=== PATIENT | female | born 1990 ===

== ENCOUNTER 2018-06-11 15:28 | Inpatient (IN) | payer MEDICAID ==
--- NOTE | 2018-06-11 15:40 | ED PDOC ---
HPI: Psych/Substance Abuse Time Seen by Provider: 06/11/18 15:34 Chief Complaint (Nursing): Psychiatric Evaluation Chief Complaint (Provider): Psychiatric evaluation History Per: EMS History/Exam Limitations: clinical condition Additional Complaint(s): 27yo female with history of bipolar disorder, brought to ER by EMS for evaluation due to reported attempted suicide. Patient brought with suicide note. Patient report she took 10-15 klonopin (2mg) and 5-7 seroquel (200mg) as well as a bottle of tequila. Currently patient awake and answering questions appropriately. No complaints of chest pain, headache, abdominal pain, nausea, vomiting or diarrhea. No additional complaints. Per EMS, patient was going to commit suicide with a group of people; patient's friend called 911 Past Medical History Reviewed: Historical Data, Nursing Documentation, Vital Signs Vital Signs: Last Vital Signs Temp 98.1 F 06/11/18 15:33 Pulse 105 H 06/11/18 15:33 Resp 18 06/11/18 15:33 BP 126/74 06/11/18 15:33 Pulse Ox 99 06/11/18 15:33 Primary Care Provider: Naila Tirado - Medical History PMH: Bipolar Disorder - Surgical History Surgical History: No Surg Hx - Family History Family History: States: No Known Family Hx - Home Medications Home Medications: Ambulatory Orders Medication Instructions Recorded ALPRAZolam [Xanax] 1 mg PO Q8 06/11/18 Dextroamphetamine/Amphetamine 20 mg PO BID 06/11/18 [Adderall 20 mg Tablet] Diazepam [Valium] 10 mg PO Q12 PRN 06/11/18 [place] Carbon[facility] ER Tab [[place] 3 tab PO DAILY 06/11/18 Carbonate] Propranolol [Inderal] 10 mg PO Q12 06/11/18 - Allergies Allergies/Adverse Reactions: Allergies Allergy/AdvReac Type Severity Reaction Status Date / Time Unobtainable Allergy Verified 06/11/18 15:33 Review of Systems Cardiovascular: Negative for: Chest Pain Respiratory: Negative for: Shortness of Breath Gastrointestinal: Negative for: Nausea, Vomiting, Abdominal Pain, Diarrhea Psych: Positive for: Suicidal ideation Physical Exam - Reviewed Nursing Documentation Reviewed: Yes Vital Signs Reviewed: Yes - Physical Exam Head Exam: Positive for: ATRAUMATIC, NORMAL INSPECTION, NORMOCEPHALIC Skin: Positive for: Normal Color Eye Exam: Positive for: Normal appearance, EOMI, PERRL Neck: Positive for: Supple Cardiovascular/Chest: Positive for: Regular Rate, Rhythm Respiratory: Positive for: Normal Breath Sounds. Negative for: Respiratory Distress Gastrointestinal/Abdominal: Positive for: Normal Exam, Soft. Negative for: Tenderness Back: Positive for: Normal Inspection. Negative for: L CVA Tenderness, R CVA Tenderness Extremity: Positive for: Normal ROM. Negative for: Pedal Edema Neurological/Psych: Positive for: Awake, Alert, Mood/Affect (answering questions appropriately) - Laboratory Results Result Diagrams: 06/11/18 16:15 06/11/18 16:15 Interpretation Of Abn Labs: 16.8 wbc, etoh 70, benzo in urine - ECG ECG: Positive for: Interpreted By Me, Viewed By Me ECG Rhythm: Negative for: ST/T Changes Interpretation Of Abn EKG: qtc 473 O2 Sat by Pulse Oximetry: 99 (RA) Pulse Ox Interpretation: Normal - Progress ED Course And Treament: 2138: HR likely elevated from etoh abuse, dehydration, and overdose on meds. Pt. stable. Will give more hydration. HR is improving. EKG qtc stable and not worsening. 2199: Spoke with Dr. Pierre who will admit. Medical Decision Making Medical Decision Making: Impression: Brought in by EMS s/p suicide attempt Plan: -- Labs -- EKG -- Urinalysis -- IV Fluids 1:1 observation started due to concerns for patient safety. 1550 ROX Becker spoke with poison control, who recommend to electrolyte levels (especially potassium and magnesium), Aspririn, and Tylenol levels. Repeat EKG if electrolytes are abnormal. Also recommended to monitor for QTC prolongation due to the Seroquel ingestion and watch for [employer] depression due to Clonazepam and Seroquel. ScribeAttestation: Documented byPinky Solorio acting as a scribe for Roque Deal MD. Provider ScribeAttestation: All medical record entries made by the Scribe were at my direction and personally dictated by me. I have reviewed the chart and agree that the record accurately reflects my personal performance of the history, physical exam, medical decision making, and the department course for this patient. I have also personally directed, reviewed, and agree with the discharge instructions and disposition. Disposition - Clinical Impression Clinical Impression: Tachycardia, Dehydration, Depressed, Overdose - Patient ED Disposition Is Patient to be Admitted: Yes Counseled Patient/Family Regarding: Studies Performed, Diagnosis - Disposition Disposition Time: 22:06 Condition: FAIR - Pt Status Changed To: Hospital Disposition Of: Observation - POA Present On Arrival: None
[2018-06-11] MEDS ORDERED: Sodium Chloride 0.9% 1,000 ML IV STA ×3 (15:54→21:38)
[2018-06-11 16:35] LABS: BASO % 0.2 % (0.0-2.0); EOS % 0.1 % (0.0-4.0); HEMOGLOBIN 15.1 g/dL (12.0-16.0); LYMPH # 1.9 K/uL (1.0-4.3); LYMPH % 11.1 % (20.0-40.0); MEAN CELL VOLUME 87.3 fl (81.0-99.0); MEAN CORPUSCULAR HEMOGLOBIN 28.1 pg (27.0-31.0); MEAN CORPUSCULAR HGB CONC 32.1 g/dL (33.0-37.0); MEAN PLATELET VOLUME 7.8 fl (7.2-11.7); MONO % 5.9 % (0.0-10.0); NEUT # 13.9 K/uL (1.8-7.0); NEUT % 82.7 % (50.0-75.0); NRBC % 0.1 % (0.0-0.0); RBC 5.4 Mil/uL (3.80-5.20); RED CELL DISTRIBUTION WIDTH 14.2 % (11.5-14.5); WHITE BLOOD COUNT 16.8 K/uL (4.8-10.8)
[2018-06-11 16:41] LABS: ACETAMINOPHEN < 10.0 ug/ml (10.0-30.0); ALB/GLOB RATIO 1.4 (1.0-2.1); ALBUMIN 5.2 g/dL (3.5-5.0); ALT/SGPT 37 U/L (9-52); AST/SGOT 40 U/L (14-36); BLOOD UREA NITROGEN 10 mg/dl (7-17); CALCIUM 9.3 mg/dL (8.4-10.2); GFR NON-AFRICAN AMERICAN > 60; INR 1.2; PROTHROMBIN TIME 13.8 Seconds (9.8-13.1); SALICYLATE < 1.0 mg/dl
[2018-06-11 16:44] LABS: PARTIAL THROMBOPLASTIN TIME 36.2 Seconds (25.6-37.1)
[2018-06-11 18:29] LABS: URINE BACTERIA RARE (<OCC); URINE BILIRUBIN NEGATIVE (NEGATIVE); URINE BLOOD SMALL (NEGATIVE); URINE CLARITY CLEAR (Clear); URINE COLOR YELLOW (YELLOW); URINE GLUCOSE (UA) NEG (NEGATIVE); URINE LEUKOCYTE ESTERASE NEG Leu/uL (Negative); URINE PROTEIN NEGATIVE (NEGATIVE); URINE UROBILINOGEN 0.2-1.0 mg/dL (0.2-1.0)
[2018-06-11 18:48] LABS: BARBITURATES, UR NEGATIVE (NEGATIVE); BENZODIAZEPINES, UR POSITIVE (NEGATIVE); OPIATES, UR NEGATIVE (NEGATIVE); PHENCYCLIDINE, UR NEGATIVE (NEGATIVE)
--- NOTE | 2018-06-11 23:04 | CP.PCM.HP ---
<Marcin Choi - Last Filed: 06/11/18 23:13> History of Present Illness - History of Present Illness History of Present Illness: 27 yo F with pmhx of bipolar disorder presents to the ED for attempted suicide. She took Klonapin 2 mg #10-15 and Seroquel 200 mg #5-7 along with tequila. History gathered from ER documentation. Pt was sedated and was minimally interactive. In the ER, she was also noted to by tachycardic 110s Present on Admission - Present on Admission Any Indicators Present on Admission: No Review of Systems - Review of Systems Systems not reviewed;Unavailable: Altered Mental Status, Intoxicated Past Patient History - Past Social History Smoking Status: Light Smoker < 10 Cigarettes Daily - CARDIAC Hx Cardiac Disorders: No Hx Hypertension: No - PULMONARY Hx Tuberculosis: No - NEUROLOGICAL HX Cerebrovascular Accident: No Hx Seizures: No - HEMATOLOGICAL/ONCOLOGICAL Hx Cancer: No Hx Human Immunodeficiency Virus (HIV): No - GENITOURINARY/GYNECOLOGICAL Hx Sexually Transmitted Disorders: No - PSYCHIATRIC Hx Bipolar Disorder: Yes - SURGICAL HISTORY Hx Surgeries: Yes Other/Comment: oral surgery - ANESTHESIA Hx Anesthesia: Yes Meds Allergies/Adverse Reactions: Allergies Allergy/AdvReac Type Severity Reaction Status Date / Time Unobtainable Allergy Verified 06/11/18 15:33 Physical Exam - Constitutional Appears: Confused, Other (sedated) - Eye Exam Eye Exam: EOMI. absent: Nystagmus - ENT Exam ENT Exam: Mucous Membranes Moist - Respiratory Exam Respiratory Exam: Clear to Auscultation Bilateral. absent: Wheezes - Cardiovascular Exam Cardiovascular Exam: Tachycardia, +S1, +S2 - GI/Abdominal Exam GI & Abdominal Exam: Normal Bowel Sounds, Soft. absent: Tenderness - Neurological Exam Neurological exam: Altered - Psychiatric Exam Psychiatric exam: Suicidal Ideation Results - Vital Signs Recent Vital Signs: Last Vital Signs Temp 98.1 F 06/11/18 15:33 Pulse 107 H 06/11/18 22:07 Resp 18 06/11/18 22:07 BP 108/69 06/11/18 22:07 Pulse Ox 100 06/11/18 22:07 - Labs Result Diagrams: 06/11/18 16:15 06/11/18 16:15 Labs: Laboratory Results - last 24 hr 06/11/18 06/11/18 06/11/18 15:56 16:15 16:15 WBC RBC Hgb Hct MCV MCH MCHC RDW Plt Count MPV Neut % (Auto) Lymph % (Auto) [place] % (Auto) Eos % (Auto) Baso % (Auto) Neut # (Auto) Lymph # (Auto) [place] # (Auto) Eos # (Auto) Baso # (Auto) PT INR APTT Sodium 145 Potassium 4.0 Chloride 107 Carbon Dioxide 17 L Anion Gap 25 H BUN 10 Creatinine 0.5 L Est GFR ( Amer) > 60 Est GFR (Non-Af Amer) > 60 POC Glucose (mg/dL) 90 Random Glucose 96 Calcium 9.3 Magnesium 2.2 Total Bilirubin 0.3 AST 40 H ALT 37 Alkaline Phosphatase 70 Troponin I 0.0480 Total Protein 8.9 H Albumin 5.2 H Globulin 3.8 Albumin/Globulin Ratio 1.4 Urine Color Urine Clarity Urine pH Ur Specific [place] Urine Protein Urine Glucose (UA) Urine Ketones Urine Blood Urine Nitrate Urine Bilirubin Urine Urobilinogen Ur Leukocyte Esterase Urine RBC (Auto) Urine Microscopic WBC Urine Bacteria Salicylates < 1.0 Urine Opiates Screen Urine Methadone Screen Acetaminophen < 10.0 L Ur Barbiturates Screen Ur Phencyclidine Scrn Ur Amphetamines Screen U Benzodiazepines Scrn U Oth Cocaine Metabols U Cannabinoids Screen Alcohol, Quantitative 70 H 06/11/18 06/11/18 06/11/18 16:15 16:15 17:50 WBC 16.8 H RBC 5.40 H Hgb 15.1 Hct 47.1 H MCV 87.3 MCH 28.1 MCHC 32.1 L RDW 14.2 Plt Count 355 MPV 7.8 Neut % (Auto) 82.7 H Lymph % (Auto) 11.1 L [place] % (Auto) 5.9 Eos % (Auto) 0.1 Baso % (Auto) 0.2 Neut # (Auto) 13.9 H Lymph # (Auto) 1.9 [place] # (Auto) 1.0 H Eos # (Auto) 0.0 Baso # (Auto) 0.0 PT 13.8 H INR 1.2 APTT 36.2 Sodium Potassium Chloride Carbon Dioxide Anion Gap BUN Creatinine Est GFR ( Amer) Est GFR (Non-Af Amer) POC Glucose (mg/dL) Random Glucose Calcium Magnesium Total Bilirubin AST ALT Alkaline Phosphatase Troponin I Total Protein Albumin Globulin Albumin/Globulin Ratio Urine Color Urine Clarity Urine pH Ur Specific [place] Urine Protein Urine Glucose (UA) Urine Ketones Urine Blood Urine Nitrate Urine Bilirubin Urine Urobilinogen Ur Leukocyte Esterase Urine RBC (Auto) Urine Microscopic WBC Urine Bacteria Salicylates Urine Opiates Screen Negative Urine Methadone Screen Negative Acetaminophen Ur Barbiturates Screen Negative Ur Phencyclidine Scrn Negative Ur Amphetamines Screen Negative U Benzodiazepines Scrn Positive U Oth Cocaine Metabols Negative U Cannabinoids Screen Negative Alcohol, Quantitative 06/11/18 17:50 WBC RBC Hgb Hct MCV MCH MCHC RDW Plt Count MPV Neut % (Auto) Lymph % (Auto) [place] % (Auto) Eos % (Auto) Baso % (Auto) Neut # (Auto) Lymph # (Auto) [place] # (Auto) Eos # (Auto) Baso # (Auto) PT INR APTT Sodium Potassium Chloride Carbon Dioxide Anion Gap BUN Creatinine Est GFR ( Amer) Est GFR (Non-Af Amer) POC Glucose (mg/dL) Random Glucose Calcium Magnesium Total Bilirubin AST ALT Alkaline Phosphatase Troponin I Total Protein Albumin Globulin Albumin/Globulin Ratio Urine Color Yellow Urine Clarity Clear Urine pH 5.0 Ur Specific [place] 1.013 Urine Protein Negative Urine Glucose (UA) Neg Urine Ketones Trace Urine Blood Small Urine Nitrate Negative Urine Bilirubin Negative Urine Urobilinogen 0.2-1.0 Ur Leukocyte Esterase Neg Urine RBC (Auto) 3 Urine Microscopic WBC 1 Urine Bacteria Rare Salicylates Urine Opiates Screen Urine Methadone Screen Acetaminophen Ur Barbiturates Screen Ur Phencyclidine Scrn Ur Amphetamines Screen U Benzodiazepines Scrn U Oth Cocaine Metabols U Cannabinoids Screen Alcohol, Quantitative Assessment & Plan - Assessment and Plan (Free Text) Assessment: 27 yo F with pmhx of bipolar disorder presents to the ED for attempted suicide. Plan: Tachycardia: Admit to Tele potline monitor pt reports last taking propranolol 2 months ago. start metoprolol IV 5 mg q6 hrs monitor vital signs Substance overdose: Attempted suicide Klonopin and Seroquel Supportive measures Monitor vitals, mental status, AM labs c/w 1:1 observation Neurochecks pt to be admitted to psych for attempted suicide DVT prophylaxis SCDs Case and plan d/w Dr. Ignacio Choi MD PGY-2 <Rachana Pierre - Last Filed: 06/12/18 06:15> Results - Vital Signs Recent Vital Signs: Last Vital Signs Temp 98.1 F 06/12/18 05:03 Pulse 83 06/12/18 05:03 Resp 20 06/12/18 05:03 BP 115/71 06/12/18 05:03 Pulse Ox 99 06/12/18 05:03 - Labs Result Diagrams: 06/12/18 04:40 06/12/18 04:40 Labs: Laboratory Results - last 24 hr 06/11/18 06/11/18 06/11/18 15:56 16:15 16:15 WBC RBC Hgb Hct MCV MCH MCHC RDW Plt Count MPV Neut % (Auto) Lymph % (Auto) [place] % (Auto) Eos % (Auto) Baso % (Auto) Neut # (Auto) Lymph # (Auto) [place] # (Auto) Eos # (Auto) Baso # (Auto) PT INR APTT Sodium 145 Potassium 4.0 Chloride 107 Carbon Dioxide 17 L Anion Gap 25 H BUN 10 Creatinine 0.5 L Est GFR ( Amer) > 60 Est GFR (Non-Af Amer) > 60 POC Glucose (mg/dL) 90 Random Glucose 96 Calcium 9.3 Phosphorus Magnesium 2.2 Total Bilirubin 0.3 AST 40 H ALT 37 Alkaline Phosphatase 70 Troponin I 0.0480 Total Protein 8.9 H Albumin 5.2 H Globulin 3.8 Albumin/Globulin Ratio 1.4 Urine Color Urine Clarity Urine pH Ur Specific [place] Urine Protein Urine Glucose (UA) Urine Ketones Urine Blood Urine Nitrate Urine Bilirubin Urine Urobilinogen Ur Leukocyte Esterase Urine RBC (Auto) Urine Microscopic WBC Urine Bacteria Salicylates < 1.0 Urine Opiates Screen Urine Methadone Screen Acetaminophen < 10.0 L Ur Barbiturates Screen Ur Phencyclidine Scrn Ur Amphetamines Screen U Benzodiazepines Scrn U Oth Cocaine Metabols U Cannabinoids Screen Alcohol, Quantitative 70 H 06/11/18 06/11/18 06/11/18 16:15 16:15 17:50 WBC 16.8 H RBC 5.40 H Hgb 15.1 Hct 47.1 H MCV 87.3 MCH 28.1 MCHC 32.1 L RDW 14.2 Plt Count 355 MPV 7.8 Neut % (Auto) 82.7 H Lymph % (Auto) 11.1 L [place] % (Auto) 5.9 Eos % (Auto) 0.1 Baso % (Auto) 0.2 Neut # (Auto) 13.9 H Lymph # (Auto) 1.9 [place] # (Auto) 1.0 H Eos # (Auto) 0.0 Baso # (Auto) 0.0 PT 13.8 H INR 1.2 APTT 36.2 Sodium Potassium Chloride Carbon Dioxide Anion Gap BUN Creatinine Est GFR ( Amer) Est GFR (Non-Af Amer) POC Glucose (mg/dL) Random Glucose Calcium Phosphorus Magnesium Total Bilirubin AST ALT Alkaline Phosphatase Troponin I Total Protein Albumin Globulin Albumin/Globulin Ratio Urine Color Urine Clarity Urine pH Ur Specific [place] Urine Protein Urine Glucose (UA) Urine Ketones Urine Blood Urine Nitrate Urine Bilirubin Urine Urobilinogen Ur Leukocyte Esterase Urine RBC (Auto) Urine Microscopic WBC Urine Bacteria Salicylates Urine Opiates Screen Negative Urine Methadone Screen Negative Acetaminophen Ur Barbiturates Screen Negative Ur Phencyclidine Scrn Negative Ur Amphetamines Screen Negative U Benzodiazepines Scrn Positive U Oth Cocaine Metabols Negative U Cannabinoids Screen Negative Alcohol, Quantitative 06/11/18 06/12/18 06/12/18 17:50 04:40 04:40 WBC 12.5 H RBC 4.30 Hgb 12.3 D Hct 37.6 MCV 87.3 MCH 28.5 MCHC 32.6 L RDW 14.3 Plt Count 279 MPV Neut % (Auto) Lymph % (Auto) [place] % (Auto) Eos % (Auto) Baso % (Auto) Neut # (Auto) Lymph # (Auto) [place] # (Auto) Eos # (Auto) Baso # (Auto) PT INR APTT Sodium 143 Potassium 3.5 L Chloride 113 H Carbon Dioxide 23 Anion Gap 11 BUN 10 Creatinine 0.5 L Est GFR ( Amer) > 60 Est GFR (Non-Af Amer) > 60 POC Glucose (mg/dL) Random Glucose 90 Calcium 8.1 L Phosphorus 2.6 Magnesium 1.9 Total Bilirubin 0.6 AST 31 ALT 30 Alkaline Phosphatase 49 Troponin I Total Protein 6.4 Albumin 3.6 Globulin 2.8 Albumin/Globulin Ratio 1.3 Urine Color Yellow Urine Clarity Clear Urine pH 5.0 Ur Specific [place] 1.013 Urine Protein Negative Urine Glucose (UA) Neg Urine Ketones Trace Urine Blood Small Urine Nitrate Negative Urine Bilirubin Negative Urine Urobilinogen 0.2-1.0 Ur Leukocyte Esterase Neg Urine RBC (Auto) 3 Urine Microscopic WBC 1 Urine Bacteria Rare Salicylates Urine Opiates Screen Urine Methadone Screen Acetaminophen Ur Barbiturates Screen Ur Phencyclidine Scrn Ur Amphetamines Screen U Benzodiazepines Scrn U Oth Cocaine Metabols U Cannabinoids Screen Alcohol, Quantitative Attending/Attestation - Attestation I have personally seen and examined this patient.: Yes I have fully participated in the care of the patient.: Yes I have reviewed all pertinent clinical information: Yes Notes (Text): 06/12/18 06:13 agree with findings and plan as below. 27 year old female SI overdose with seroquel and clonazepam, patient sedated, arousable, however not answering questions at this time. Patient is accepted for admission to psych, however tachycardic at 120s. Will obs on tele, initiate lopressor IV q6 hours for HR control, and change to PO when more awake and able to take PO meds. Likely discharge to psych in AM.
[2018-06-11] MEDS: Metoprolol 1 mg/ml Inj IVP SCH (23:21)
[2018-06-12] MEDS: Metoprolol 1 mg/ml Inj IVP SCH ×4 (05:00→22:20)
[2018-06-12 05:32] LABS: HEMOGLOBIN 12.3 g/dL (12.0-16.0); MEAN CELL VOLUME 87.3 fl (81.0-99.0); MEAN CORPUSCULAR HEMOGLOBIN 28.5 pg (27.0-31.0); MEAN CORPUSCULAR HGB CONC 32.6 g/dL (33.0-37.0); RBC 4.3 Mil/uL (3.80-5.20); RED CELL DISTRIBUTION WIDTH 14.3 % (11.5-14.5); WHITE BLOOD COUNT 12.5 K/uL (4.8-10.8)
[2018-06-12 05:47] LABS: ALB/GLOB RATIO 1.3 (1.0-2.1); ALBUMIN 3.6 g/dL (3.5-5.0); ALT/SGPT 30 U/L (9-52); AST/SGOT 31 U/L (14-36); BLOOD UREA NITROGEN 10 mg/dl (7-17); CALCIUM 8.1 mg/dL (8.4-10.2); GFR NON-AFRICAN AMERICAN > 60
[2018-06-12] MEDS ORDERED: Potassium Chloride 20 mEq ER Tab PO ONE (07:47)
--- NOTE | 2018-06-12 08:10 | CP.PCM.CON ---
History of Present Illness - History of Present Illness History of Present Illness: Psychiatry consult note CC: Suicide attempt HPI: As per chart, patient is a 27 yo female w/ h/o bipolar brought to ER by EMS for evaluation due to reported attempted suicide. Patient brought with suicide note. Patient report she took 10-15 klonopin (2mg) and 5-7 seroquel (200mg) as well as a bottle of tequila. Patient is currently lethargic, falling asleep during evaluation. She knows she is in the hospital, but can not stay awake long enough to engage in a full psychiatric interview. Impression: 27 yo female w/ h/o bipolar disorder, admitted s/p suicide attempt w/ suicide note, currently unable to participate in psychiatric evaluation due to lethargy. -Recommend to continue 1:1 for safety -Recommend inpatient psychiatric admission when patient is medically stable; if she is not agreeable, patient needs to be screened for involuntary psychiatric admission Past Patient History - Past Medical History & Family History Past Medical History?: Yes - Past Social History Smoking Status: unknown - CARDIAC Hx Cardiac Disorders: No Hx Hypertension: No - PULMONARY Hx Respiratory Disorders: No Hx Tuberculosis: No - NEUROLOGICAL Hx Neurological Disorder: No HX Cerebrovascular Accident: No Hx Seizures: No - HEENT Hx HEENT Problems: No - RENAL Hx Chronic Kidney Disease: No - ENDOCRINE/METABOLIC Hx Endocrine Disorders: No - HEMATOLOGICAL/ONCOLOGICAL Hx Blood Disorders: No Hx Cancer: No Hx Human Immunodeficiency Virus (HIV): No - INTEGUMENTARY Hx Dermatological Problems: No - MUSCULOSKELETAL/RHEUMATOLOGICAL Hx Musculoskeletal Disorders: No Hx Falls: No - GASTROINTESTINAL Hx Gastrointestinal Disorders: No - GENITOURINARY/GYNECOLOGICAL Hx Genitourinary Disorders: No Hx Sexually Transmitted Disorders: No - PSYCHIATRIC Hx Psychophysiologic Disorder: Yes Hx Bipolar Disorder: Yes Hx Substance Use: (unobtainable) - SURGICAL HISTORY Hx Surgeries: Yes Other/Comment: oral surgery - ANESTHESIA Hx Anesthesia: Yes Hx Anesthesia Reactions: No Hx Malignant Hyperthermia: No Has any member of the family had a problem w/ anesthesia?: No Meds Allergies/Adverse Reactions: Allergies Allergy/AdvReac Type Severity Reaction Status Date / Time Unobtainable Allergy Verified 06/11/18 15:33 - Medications Medications: Current Medications Metoprolol Tartrate (Lopressor) 5 mg IVP Q6 TYRA Last Admin: 06/12/18 05:00 Dose: 5 mg Results - Vital Signs Recent Vital Signs: Last Vital Signs Temp 97.5 F L 06/12/18 07:49 Pulse 82 06/12/18 07:49 Resp 18 06/12/18 07:49 BP 102/69 06/12/18 07:49 Pulse Ox 99 06/12/18 07:49 - Labs Result Diagrams: 06/12/18 04:40 06/12/18 04:40 Labs: Laboratory Results - last 24 hr 06/11/18 06/11/18 06/11/18 15:56 16:15 16:15 WBC RBC Hgb Hct MCV MCH MCHC RDW Plt Count MPV Neut % (Auto) Lymph % (Auto) Saline % (Auto) Eos % (Auto) Baso % (Auto) Neut # (Auto) Lymph # (Auto) Saline # (Auto) Eos # (Auto) Baso # (Auto) PT INR APTT Sodium 145 Potassium 4.0 Chloride 107 Carbon Dioxide 17 L Anion Gap 25 H BUN 10 Creatinine 0.5 L Est GFR ( Amer) > 60 Est GFR (Non-Af Amer) > 60 POC Glucose (mg/dL) 90 Random Glucose 96 Calcium 9.3 Phosphorus Magnesium 2.2 Total Bilirubin 0.3 AST 40 H ALT 37 Alkaline Phosphatase 70 Troponin I 0.0480 Total Protein 8.9 H Albumin 5.2 H Globulin 3.8 Albumin/Globulin Ratio 1.4 Urine Color Urine Clarity Urine pH Ur Specific [place] Urine Protein Urine Glucose (UA) Urine Ketones Urine Blood Urine Nitrate Urine Bilirubin Urine Urobilinogen Ur Leukocyte Esterase Urine RBC (Auto) Urine Microscopic WBC Urine Bacteria Salicylates < 1.0 Urine Opiates Screen Urine Methadone Screen Acetaminophen < 10.0 L Ur Barbiturates Screen Ur Phencyclidine Scrn Ur Amphetamines Screen U Benzodiazepines Scrn U Oth Cocaine Metabols U Cannabinoids Screen Alcohol, Quantitative 70 H 06/11/18 06/11/18 06/11/18 16:15 16:15 17:50 WBC 16.8 H RBC 5.40 H Hgb 15.1 Hct 47.1 H MCV 87.3 MCH 28.1 MCHC 32.1 L RDW 14.2 Plt Count 355 MPV 7.8 Neut % (Auto) 82.7 H Lymph % (Auto) 11.1 L Saline % (Auto) 5.9 Eos % (Auto) 0.1 Baso % (Auto) 0.2 Neut # (Auto) 13.9 H Lymph # (Auto) 1.9 Saline # (Auto) 1.0 H Eos # (Auto) 0.0 Baso # (Auto) 0.0 PT 13.8 H INR 1.2 APTT 36.2 Sodium Potassium Chloride Carbon Dioxide Anion Gap BUN Creatinine Est GFR ( Amer) Est GFR (Non-Af Amer) POC Glucose (mg/dL) Random Glucose Calcium Phosphorus Magnesium Total Bilirubin AST ALT Alkaline Phosphatase Troponin I Total Protein Albumin Globulin Albumin/Globulin Ratio Urine Color Urine Clarity Urine pH Ur Specific [place] Urine Protein Urine Glucose (UA) Urine Ketones Urine Blood Urine Nitrate Urine Bilirubin Urine Urobilinogen Ur Leukocyte Esterase Urine RBC (Auto) Urine Microscopic WBC Urine Bacteria Salicylates Urine Opiates Screen Negative Urine Methadone Screen Negative Acetaminophen Ur Barbiturates Screen Negative Ur Phencyclidine Scrn Negative Ur Amphetamines Screen Negative U Benzodiazepines Scrn Positive U Oth Cocaine Metabols Negative U Cannabinoids Screen Negative Alcohol, Quantitative 06/11/18 06/12/18 06/12/18 17:50 04:40 04:40 WBC 12.5 H RBC 4.30 Hgb 12.3 D Hct 37.6 MCV 87.3 MCH 28.5 MCHC 32.6 L RDW 14.3 Plt Count 279 MPV Neut % (Auto) Lymph % (Auto) Saline % (Auto) Eos % (Auto) Baso % (Auto) Neut # (Auto) Lymph # (Auto) Saline # (Auto) Eos # (Auto) Baso # (Auto) PT INR APTT Sodium 143 Potassium 3.5 L Chloride 113 H Carbon Dioxide 23 Anion Gap 11 BUN 10 Creatinine 0.5 L Est GFR ( Amer) > 60 Est GFR (Non-Af Amer) > 60 POC Glucose (mg/dL) Random Glucose 90 Calcium 8.1 L Phosphorus 2.6 Magnesium 1.9 Total Bilirubin 0.6 AST 31 ALT 30 Alkaline Phosphatase 49 Troponin I Total Protein 6.4 Albumin 3.6 Globulin 2.8 Albumin/Globulin Ratio 1.3 Urine Color Yellow Urine Clarity Clear Urine pH 5.0 Ur Specific [place] 1.013 Urine Protein Negative Urine Glucose (UA) Neg Urine Ketones Trace Urine Blood Small Urine Nitrate Negative Urine Bilirubin Negative Urine Urobilinogen 0.2-1.0 Ur Leukocyte Esterase Neg Urine RBC (Auto) 3 Urine Microscopic WBC 1 Urine Bacteria Rare Salicylates Urine Opiates Screen Urine Methadone Screen Acetaminophen Ur Barbiturates Screen Ur Phencyclidine Scrn Ur Amphetamines Screen U Benzodiazepines Scrn U Oth Cocaine Metabols U Cannabinoids Screen Alcohol, Quantitative
--- NOTE | 2018-06-12 09:24 | CARD ---
APPROVED REPORT Date of service: 06/11/2018 EKG Measurement Heart [id number] <Conclusion> Sinus tachycardia Nonspecific T wave abnormality Abnormal ECG
--- NOTE | 2018-06-12 09:32 | CARD ---
APPROVED REPORT Date of service: 06/11/2018 EKG Measurement Heart [id number] <Conclusion> Sinus tachycardia Otherwise normal ECG
--- NOTE | 2018-06-12 10:06 | CP.PCM.DIS ---
Provider - Provider Date of Admission: 06/11/18 23:10 Attending physician: Rachana Pierre DO Consults: 06/12/18 05:15 Social Work Referral Routine Comment: with bipolar Physician Instructions: Reason For Exam: OD 06/12/18 08:00 Psychiatry Consult Routine Comment: Consulting Provider: Karrie Sinha Consulting Physician: Karrie Sinha Reason for Consult: Attempted suicide Hospital Course - Lab Results Lab Results: Most Recent Lab Values WBC 12.5 K/uL (4.8-10.8) H 06/12/18 04:40 RBC 4.30 Mil/uL (3.80-5.20) 06/12/18 04:40 Hgb 12.3 g/dL (12.0-16.0) D 06/12/18 04:40 Hct 37.6 % (34.0-47.0) 06/12/18 04:40 MCV 87.3 fl (81.0-99.0) 06/12/18 04:40 MCH 28.5 pg (27.0-31.0) 06/12/18 04:40 MCHC 32.6 g/dL (33.0-37.0) L 06/12/18 04:40 RDW 14.3 % (11.5-14.5) 06/12/18 04:40 Plt Count 279 K/uL (130-400) 06/12/18 04:40 MPV 7.8 fl (7.2-11.7) 06/11/18 16:15 Neut % (Auto) 82.7 % (50.0-75.0) H 06/11/18 16:15 Lymph % (Auto) 11.1 % (20.0-40.0) L 06/11/18 16:15 [place] % (Auto) 5.9 % (0.0-10.0) 06/11/18 16:15 Eos % (Auto) 0.1 % (0.0-4.0) 06/11/18 16:15 Baso % (Auto) 0.2 % (0.0-2.0) 06/11/18 16:15 Neut # (Auto) 13.9 K/uL (1.8-7.0) H 06/11/18 16:15 Lymph # (Auto) 1.9 K/uL (1.0-4.3) 06/11/18 16:15 [place] # (Auto) 1.0 K/uL (0.0-0.8) H 06/11/18 16:15 Eos # (Auto) 0.0 K/uL (0.0-0.7) 06/11/18 16:15 Baso # (Auto) 0.0 K/uL (0.0-0.2) 06/11/18 16:15 PT 13.8 Seconds (9.8-13.1) H 06/11/18 16:15 INR 1.2 06/11/18 16:15 APTT 36.2 Seconds (25.6-37.1) 06/11/18 16:15 Sodium 143 mmol/l (132-148) 06/12/18 04:40 Potassium 3.5 MMOL/L (3.6-5.0) L 06/12/18 04:40 Chloride 113 mmol/L (98-107) H 06/12/18 04:40 Carbon Dioxide 23 mmol/L (22-30) 06/12/18 04:40 Anion Gap 11 (10-20) 06/12/18 04:40 BUN 10 mg/dl (7-17) 06/12/18 04:40 Creatinine 0.5 mg/dl (0.7-1.2) L 06/12/18 04:40 Est GFR ( Amer) > 60 06/12/18 04:40 Est GFR (Non-Af Amer) > 60 06/12/18 04:40 POC Glucose (mg/dL) 90 mg/dL (65-110) 06/11/18 15:56 Random Glucose 90 mg/dL (65-105) 06/12/18 04:40 Calcium 8.1 mg/dL (8.4-10.2) L 06/12/18 04:40 Phosphorus 2.6 mg/dl (2.5-4.5) 06/12/18 04:40 Magnesium 1.9 MG/DL (1.6-2.3) 06/12/18 04:40 Total Bilirubin 0.6 mg/dl (0.2-1.3) 06/12/18 04:40 AST 31 U/L (14-36) 06/12/18 04:40 ALT 30 U/L (9-52) 06/12/18 04:40 Alkaline Phosphatase 49 U/L (38-126) 06/12/18 04:40 Troponin I 0.0480 ng/mL (0.00-0.120) 06/11/18 16:15 Total Protein 6.4 G/DL (6.3-8.2) 06/12/18 04:40 Albumin 3.6 g/dL (3.5-5.0) 06/12/18 04:40 Globulin 2.8 gm/dL (2.2-3.9) 06/12/18 04:40 Albumin/Globulin Ratio 1.3 (1.0-2.1) 06/12/18 04:40 Urine Color Yellow (YELLOW) 06/11/18 17:50 Urine Clarity Clear (Clear) 06/11/18 17:50 Urine pH 5.0 (5.0-8.0) 06/11/18 17:50 Ur Specific [place] 1.013 (1.003-1.030) 06/11/18 17:50 Urine Protein Negative mg/dL (NEGATIVE) 06/11/18 17:50 Urine Glucose (UA) Neg mg/dL (NEGATIVE) 06/11/18 17:50 Urine Ketones Trace mg/dL (NEGATIVE) 06/11/18 17:50 Urine Blood Small (NEGATIVE) 06/11/18 17:50 Urine Nitrate Negative (NEGATIVE) 06/11/18 17:50 Urine Bilirubin Negative (NEGATIVE) 06/11/18 17:50 Urine Urobilinogen 0.2-1.0 mg/dL (0.2-1.0) 06/11/18 17:50 Ur Leukocyte Esterase Neg Latoya/uL (Negative) 06/11/18 17:50 Urine RBC (Auto) 3 /hpf (0-3) 06/11/18 17:50 Urine Microscopic WBC 1 /hpf (0-5) 06/11/18 17:50 Urine Bacteria Rare (<OCC) 06/11/18 17:50 Salicylates < 1.0 mg/dl 06/11/18 16:15 Urine Opiates Screen Negative (NEGATIVE) 06/11/18 17:50 Urine Methadone Screen Negative (NEGATIVE) 06/11/18 17:50 Acetaminophen < 10.0 ug/ml (10.0-30.0) L 06/11/18 16:15 Ur Barbiturates Screen Negative (NEGATIVE) 06/11/18 17:50 Ur Phencyclidine Scrn Negative (NEGATIVE) 06/11/18 17:50 Ur Amphetamines Screen Negative (NEGATIVE) 06/11/18 17:50 U Benzodiazepines Scrn Positive (NEGATIVE) 06/11/18 17:50 U Oth Cocaine Metabols Negative (NEGATIVE) 06/11/18 17:50 U Cannabinoids Screen Negative (NEGATIVE) 06/11/18 17:50 Alcohol, Quantitative 70 mg/dl (0-10) H 06/11/18 16:15 Discharge Exam - Head Exam Head Exam: ATRAUMATIC, NORMAL INSPECTION, NORMOCEPHALIC Discharge Plan - Follow Up Plan Condition: FAIR Disposition: HOME/ ROUTINE
--- NOTE | 2018-06-12 12:43 | CP.PCM.PN ---
<Alvin Garcia - Last Filed: 06/12/18 13:02> Subjective - Date & Time of Evaluation Date of Evaluation: 06/12/18 Time of Evaluation: 11:55 - Subjective Subjective: Patient seen and examined this morning, 1to1 sitter at bedside for safety, NAD. Patient is AAOx3 at this time, follows commands, but still falling asleep during conversation. Patient denies BLOOM, dizziness, blurry vision, CP, SOB, N/V at this time. Remains afebrile. Objective - Vital Signs/Intake and Output Vital Signs (last 24 hours): Temp Pulse Resp BP Pulse Ox 98.4 F 91 H 18 128/73 96 06/12/18 12:16 06/12/18 12:16 06/12/18 12:16 06/12/18 12:16 06/12/18 12:16 - Medications Medications: Current Medications Metoprolol Tartrate (Lopressor) 5 mg IVP Q6 [facility] Last Admin: 06/12/18 09:06 Dose: 5 mg Nicotine (Nicoderm Cq) 1 patch TD DAILY [facility] Last Admin: 06/12/18 12:10 Dose: 1 patch Thiamine HCl (Vitamin B1 Tab) 100 mg PO DAILY [facility] - Labs Labs: 06/12/18 04:40 06/12/18 04:40 PT 13.8 Seconds (9.8-13.1) H 06/11/18 16:15 INR 1.2 06/11/18 16:15 APTT 36.2 Seconds (25.6-37.1) 06/11/18 16:15 - Constitutional Appears: No Acute Distress - Head Exam Head Exam: NORMAL INSPECTION - Eye Exam Eye Exam: EOMI - ENT Exam ENT Exam: Mucous Membranes Moist - Neck Exam Neck Exam: Full ROM - Respiratory Exam Respiratory Exam: Clear to Ausculation Bilateral, NORMAL BREATHING PATTERN - Extremities Exam Extremities Exam: absent: Pedal Edema - Neurological Exam Neurological Exam: CN II-XII Intact, Oriented x3 Additional comments: AAOx3 at this time, but disengaged in the conversation and appears to be falling asleep. Noted unsteady gait, Romberg closed eyes + - Psychiatric Exam Psychiatric exam: Flat Affect - Skin Skin Exam: Normal Color, Warm Assessment and Plan - Assessment and Plan (Free Text) Assessment: 27 y/o F with PMHx of bipolar disorder presented to the ED for attempted suicide. Plan: Substance overdose: Attempted suicide with Klonopin and Seroquel Supportive measures Thiamine 100 QD Monitor vitals, mental status c/w 1:1 observation for safety Neurochecks Psych consulattion Dr Sinha, recommendations appreciated pt to be admitted to psych for attempted suicide once medically stable to be transfrred Tachycardia: Resolved at this time Tele monitoring pt reports last taking propranolol 2 months ago. start metoprolol IV 5 mg q6 hrs monitor vital signs DVT prophylaxis SCDs <Racheal Mccarthy Belle - Last Filed: 06/12/18 13:38> Objective - Vital Signs/Intake and Output Vital Signs (last 24 hours): Temp Pulse Resp BP Pulse Ox 98.4 F 91 H 18 128/73 96 06/12/18 12:16 06/12/18 12:16 06/12/18 12:16 06/12/18 12:16 06/12/18 12:16 - Medications Medications: Current Medications Metoprolol Tartrate (Lopressor) 5 mg IVP Q6 [facility] Last Admin: 06/12/18 09:06 Dose: 5 mg Nicotine (Nicoderm Cq) 1 patch TD DAILY [facility] Last Admin: 06/12/18 12:10 Dose: 1 patch Thiamine HCl (Vitamin B1 Tab) 100 mg PO DAILY [facility] - Labs Labs: 06/12/18 04:40 06/12/18 04:40 PT 13.8 Seconds (9.8-13.1) H 06/11/18 16:15 INR 1.2 06/11/18 16:15 APTT 36.2 Seconds (25.6-37.1) 06/11/18 16:15 Attending/Attestation - Attestation I have personally seen and examined this patient.: Yes I have fully participated in the care of the patient.: Yes I have reviewed all pertinent clinical information, including history, physical exam and plan: Yes Notes (Text): Drug Overdose - Seroquel and Klonopin Suicidal Attempt Alcohol Intoxication Sinus Tacycardia, resolved Bipolar Dis Leukocytosis prob reactive -Pt is awake , alert, oriented x 3 -tachycardia resolved, no EKG change - still lethargic at times according to staff -will upgrade diet as tolerated - Psych consulted - plan for d/c to Inpatient Psych once more awake and able to ambulate - will get Physical therapy to eval - pt is afebrile, no signs of infection, leukocytosis trended down w/o abx
[2018-06-13] MEDS: Metoprolol 1 mg/ml Inj IVP SCH ×2 (04:25→09:02)
[2018-06-13 06:48] LABS: HEMOGLOBIN 12.7 g/dL (12.0-16.0); MEAN CELL VOLUME 86.8 fl (81.0-99.0); MEAN CORPUSCULAR HEMOGLOBIN 28.8 pg (27.0-31.0); MEAN CORPUSCULAR HGB CONC 33.1 g/dL (33.0-37.0); RBC 4.4 Mil/uL (3.80-5.20); RED CELL DISTRIBUTION WIDTH 14.2 % (11.5-14.5); WHITE BLOOD COUNT 9.4 K/uL (4.8-10.8)
[2018-06-13 07:13] LABS: BLOOD UREA NITROGEN 11 mg/dl (7-17); CALCIUM 8.5 mg/dL (8.4-10.2); GFR NON-AFRICAN AMERICAN > 60
[2018-06-13] MEDS ORDERED: Potassium Chloride 20 mEq ER Tab PO ONE (08:30)
--- NOTE | 2018-06-13 10:38 | CP.PCM.DIS ---
<Alvin Garcia - Last Filed: 06/13/18 10:48> Provider - Provider Date of Admission: 06/11/18 23:10 Attending physician: Rachana Pierre DO Consults: 06/12/18 05:15 Social Work Referral Routine Comment: with bipolar Physician Instructions: Reason For Exam: OD 06/12/18 08:00 Psychiatry Consult Routine Comment: Consulting Provider: Karrie Sinha Consulting Physician: Karrie Sinha Reason for Consult: Attempted suicide Time Spent in preparation of Discharge (in minutes): 33 Diagnosis - Discharge Diagnosis (1) Depressed Status: Acute (2) Tachycardia Status: Acute (3) Suicide attempt by substance overdose Status: Acute Hospital Course - Lab Results Lab Results: Most Recent Lab Values WBC 9.4 K/uL (4.8-10.8) 06/13/18 04:35 RBC 4.40 Mil/uL (3.80-5.20) 06/13/18 04:35 Hgb 12.7 g/dL (12.0-16.0) 06/13/18 04:35 Hct 38.2 % (34.0-47.0) 06/13/18 04:35 MCV 86.8 fl (81.0-99.0) 06/13/18 04:35 MCH 28.8 pg (27.0-31.0) 06/13/18 04:35 MCHC 33.1 g/dL (33.0-37.0) 06/13/18 04:35 RDW 14.2 % (11.5-14.5) 06/13/18 04:35 Plt Count 297 K/uL (130-400) 06/13/18 04:35 MPV 7.8 fl (7.2-11.7) 06/11/18 16:15 Neut % (Auto) 82.7 % (50.0-75.0) H 06/11/18 16:15 Lymph % (Auto) 11.1 % (20.0-40.0) L 06/11/18 16:15 [place] % (Auto) 5.9 % (0.0-10.0) 06/11/18 16:15 Eos % (Auto) 0.1 % (0.0-4.0) 06/11/18 16:15 Baso % (Auto) 0.2 % (0.0-2.0) 06/11/18 16:15 Neut # (Auto) 13.9 K/uL (1.8-7.0) H 06/11/18 16:15 Lymph # (Auto) 1.9 K/uL (1.0-4.3) 06/11/18 16:15 [place] # (Auto) 1.0 K/uL (0.0-0.8) H 06/11/18 16:15 Eos # (Auto) 0.0 K/uL (0.0-0.7) 06/11/18 16:15 Baso # (Auto) 0.0 K/uL (0.0-0.2) 06/11/18 16:15 PT 13.8 Seconds (9.8-13.1) H 06/11/18 16:15 INR 1.2 06/11/18 16:15 APTT 36.2 Seconds (25.6-37.1) 06/11/18 16:15 Sodium 141 mmol/l (132-148) 06/13/18 04:35 Potassium 3.5 MMOL/L (3.6-5.0) L 06/13/18 04:35 Chloride 109 mmol/L (98-107) H 06/13/18 04:35 Carbon Dioxide 22 mmol/L (22-30) 06/13/18 04:35 Anion Gap 14 (10-20) 06/13/18 04:35 BUN 11 mg/dl (7-17) 06/13/18 04:35 Creatinine 0.5 mg/dl (0.7-1.2) L 06/13/18 04:35 Est GFR ( Amer) > 60 06/13/18 04:35 Est GFR (Non-Af Amer) > 60 06/13/18 04:35 POC Glucose (mg/dL) 90 mg/dL (65-110) 06/11/18 15:56 Random Glucose 97 mg/dL (65-105) 06/13/18 04:35 Calcium 8.5 mg/dL (8.4-10.2) 06/13/18 04:35 Phosphorus 2.6 mg/dl (2.5-4.5) 06/12/18 04:40 Magnesium 1.9 MG/DL (1.6-2.3) 06/12/18 04:40 Total Bilirubin 0.6 mg/dl (0.2-1.3) 06/12/18 04:40 AST 31 U/L (14-36) 06/12/18 04:40 ALT 30 U/L (9-52) 06/12/18 04:40 Alkaline Phosphatase 49 U/L (38-126) 06/12/18 04:40 Troponin I 0.0480 ng/mL (0.00-0.120) 06/11/18 16:15 Total Protein 6.4 G/DL (6.3-8.2) 06/12/18 04:40 Albumin 3.6 g/dL (3.5-5.0) 06/12/18 04:40 Globulin 2.8 gm/dL (2.2-3.9) 06/12/18 04:40 Albumin/Globulin Ratio 1.3 (1.0-2.1) 06/12/18 04:40 Urine Color Yellow (YELLOW) 06/11/18 17:50 Urine Clarity Clear (Clear) 06/11/18 17:50 Urine pH 5.0 (5.0-8.0) 06/11/18 17:50 Ur Specific Rosie 1.013 (1.003-1.030) 06/11/18 17:50 Urine Protein Negative mg/dL (NEGATIVE) 06/11/18 17:50 Urine Glucose (UA) Neg mg/dL (NEGATIVE) 06/11/18 17:50 Urine Ketones Trace mg/dL (NEGATIVE) 06/11/18 17:50 Urine Blood Small (NEGATIVE) 06/11/18 17:50 Urine Nitrate Negative (NEGATIVE) 06/11/18 17:50 Urine Bilirubin Negative (NEGATIVE) 06/11/18 17:50 Urine Urobilinogen 0.2-1.0 mg/dL (0.2-1.0) 06/11/18 17:50 Ur Leukocyte Esterase Neg Latoya/uL (Negative) 06/11/18 17:50 Urine RBC (Auto) 3 /hpf (0-3) 06/11/18 17:50 Urine Microscopic WBC 1 /hpf (0-5) 06/11/18 17:50 Urine Bacteria Rare (<OCC) 06/11/18 17:50 Salicylates < 1.0 mg/dl 06/11/18 16:15 Urine Opiates Screen Negative (NEGATIVE) 06/11/18 17:50 Urine Methadone Screen Negative (NEGATIVE) 06/11/18 17:50 Acetaminophen < 10.0 ug/ml (10.0-30.0) L 06/11/18 16:15 Ur Barbiturates Screen Negative (NEGATIVE) 06/11/18 17:50 Ur Phencyclidine Scrn Negative (NEGATIVE) 06/11/18 17:50 Ur Amphetamines Screen Negative (NEGATIVE) 06/11/18 17:50 U Benzodiazepines Scrn Positive (NEGATIVE) 06/11/18 17:50 U Oth Cocaine Metabols Negative (NEGATIVE) 06/11/18 17:50 U Cannabinoids Screen Negative (NEGATIVE) 06/11/18 17:50 Alcohol, Quantitative 70 mg/dl (0-10) H 06/11/18 16:15 - Hospital Course Hospital Course: 27 Y/O F with PMHx of bipolar disorder presented to the ED for attempted suicide. As per MR patient took Klonopin 2 mg approximately 10-15 and Seroquel 200 mg 5-7 tabs along with tequila. Upon admission patient was sedated in th ED and was noted with tachycardia with HR 110s and alcohol level elevated in blood. During hospital course patient was placed in tele, with 1to1 observation, metoprolol given for tachycardia, IVF administered. Patient was evaluated by psychiatry and recommended continue 1:1 for safety andimpatient admission to psych unit once patient is stable medically, if patient is not agreeable, patient needs to be screened for involuntary psychiatric admission. At time of psych eval patient noted AAOx3 but still lethargic and sleepy. Patient at this time is noted is found to be stable to be transferred to psych, patient is AAOx3, able to get OOB and ambulatory without dizziness or umbalance, tachycardia resolved, patient able to eat and tolerate regular diet. All chart and clinical date reviewed and patient found stable to be discharge to psych unit. Discharge Exam - Head Exam Head Exam: NORMAL INSPECTION - Eye Exam Eye Exam: EOMI - ENT Exam ENT Exam: Mucous Membranes Moist - Respiratory Exam Respiratory Exam: Clear to PA & Lateral, NORMAL BREATHING PATTERN - Cardiovascular Exam Cardiovascular Exam: REGULAR RHYTHM - GI/Abdominal Exam GI & Abdominal Exam: Soft. absent: Tenderness - Neurological Exam Neurological exam: Alert, Oriented x3 - Psychiatric Exam Psychiatric exam: Normal Affect - Skin Skin Exam: Normal Color, Warm Discharge Plan - Follow Up Plan Condition: FAIR Disposition: DISCH TO PSYCH HOSP PLAN READ Patient education suggested?: Yes Instructions: Depression, Suicide Prevention Additional Instructions: Patient medically stable to be discharge to psychiatry unit for further management <Racheal Mccarthy - Last Filed: 06/13/18 15:11> Provider - Provider Date of Admission: 06/11/18 23:10 Attending physician: Rachana Pierre DO Consults: 06/12/18 05:15 Social Work Referral Routine Comment: with bipolar Physician Instructions: Reason For Exam: OD 06/12/18 08:00 Psychiatry Consult Routine Comment: Consulting Provider: Karrie Sniha Consulting Physician: Karrie Sinha Reason for Consult: Attempted suicide Hospital Course - Lab Results Lab Results: Most Recent Lab Values WBC 9.4 K/uL (4.8-10.8) 06/13/18 04:35 RBC 4.40 Mil/uL (3.80-5.20) 06/13/18 04:35 Hgb 12.7 g/dL (12.0-16.0) 06/13/18 04:35 Hct 38.2 % (34.0-47.0) 06/13/18 04:35 MCV 86.8 fl (81.0-99.0) 06/13/18 04:35 MCH 28.8 pg (27.0-31.0) 06/13/18 04:35 MCHC 33.1 g/dL (33.0-37.0) 06/13/18 04:35 RDW 14.2 % (11.5-14.5) 06/13/18 04:35 Plt Count 297 K/uL (130-400) 06/13/18 04:35 MPV 7.8 fl (7.2-11.7) 06/11/18 16:15 Neut % (Auto) 82.7 % (50.0-75.0) H 06/11/18 16:15 Lymph % (Auto) 11.1 % (20.0-40.0) L 06/11/18 16:15 [place] % (Auto) 5.9 % (0.0-10.0) 06/11/18 16:15 Eos % (Auto) 0.1 % (0.0-4.0) 06/11/18 16:15 Baso % (Auto) 0.2 % (0.0-2.0) 06/11/18 16:15 Neut # (Auto) 13.9 K/uL (1.8-7.0) H 06/11/18 16:15 Lymph # (Auto) 1.9 K/uL (1.0-4.3) 06/11/18 16:15 [place] # (Auto) 1.0 K/uL (0.0-0.8) H 06/11/18 16:15 Eos # (Auto) 0.0 K/uL (0.0-0.7) 06/11/18 16:15 Baso # (Auto) 0.0 K/uL (0.0-0.2) 06/11/18 16:15 PT 13.8 Seconds (9.8-13.1) H 06/11/18 16:15 INR 1.2 06/11/18 16:15 APTT 36.2 Seconds (25.6-37.1) 06/11/18 16:15 Sodium 141 mmol/l (132-148) 06/13/18 04:35 Potassium 3.5 MMOL/L (3.6-5.0) L 06/13/18 04:35 Chloride 109 mmol/L (98-107) H 06/13/18 04:35 Carbon Dioxide 22 mmol/L (22-30) 06/13/18 04:35 Anion Gap 14 (10-20) 06/13/18 04:35 BUN 11 mg/dl (7-17) 06/13/18 04:35 Creatinine 0.5 mg/dl (0.7-1.2) L 06/13/18 04:35 Est GFR ( Amer) > 60 06/13/18 04:35 Est GFR (Non-Af Amer) > 60 06/13/18 04:35 POC Glucose (mg/dL) 90 mg/dL (65-110) 06/11/18 15:56 Random Glucose 97 mg/dL (65-105) 06/13/18 04:35 Calcium 8.5 mg/dL (8.4-10.2) 06/13/18 04:35 Phosphorus 2.6 mg/dl (2.5-4.5) 06/12/18 04:40 Magnesium 1.9 MG/DL (1.6-2.3) 06/12/18 04:40 Total Bilirubin 0.6 mg/dl (0.2-1.3) 06/12/18 04:40 AST 31 U/L (14-36) 06/12/18 04:40 ALT 30 U/L (9-52) 06/12/18 04:40 Alkaline Phosphatase 49 U/L (38-126) 06/12/18 04:40 Troponin I 0.0480 ng/mL (0.00-0.120) 06/11/18 16:15 Total Protein 6.4 G/DL (6.3-8.2) 06/12/18 04:40 Albumin 3.6 g/dL (3.5-5.0) 06/12/18 04:40 Globulin 2.8 gm/dL (2.2-3.9) 06/12/18 04:40 Albumin/Globulin Ratio 1.3 (1.0-2.1) 06/12/18 04:40 Urine Color Yellow (YELLOW) 06/11/18 17:50 Urine Clarity Clear (Clear) 06/11/18 17:50 Urine pH 5.0 (5.0-8.0) 06/11/18 17:50 Ur Specific [place] 1.013 (1.003-1.030) 06/11/18 17:50 Urine Protein Negative mg/dL (NEGATIVE) 06/11/18 17:50 Urine Glucose (UA) Neg mg/dL (NEGATIVE) 06/11/18 17:50 Urine Ketones Trace mg/dL (NEGATIVE) 06/11/18 17:50 Urine Blood Small (NEGATIVE) 06/11/18 17:50 Urine Nitrate Negative (NEGATIVE) 06/11/18 17:50 Urine Bilirubin Negative (NEGATIVE) 06/11/18 17:50 Urine Urobilinogen 0.2-1.0 mg/dL (0.2-1.0) 06/11/18 17:50 Ur Leukocyte Esterase Neg Latoya/uL (Negative) 06/11/18 17:50 Urine RBC (Auto) 3 /hpf (0-3) 06/11/18 17:50 Urine Microscopic WBC 1 /hpf (0-5) 06/11/18 17:50 Urine Bacteria Rare (<OCC) 06/11/18 17:50 Salicylates < 1.0 mg/dl 06/11/18 16:15 Urine Opiates Screen Negative (NEGATIVE) 06/11/18 17:50 Urine Methadone Screen Negative (NEGATIVE) 06/11/18 17:50 Acetaminophen < 10.0 ug/ml (10.0-30.0) L 06/11/18 16:15 Ur Barbiturates Screen Negative (NEGATIVE) 06/11/18 17:50 Ur Phencyclidine Scrn Negative (NEGATIVE) 06/11/18 17:50 Ur Amphetamines Screen Negative (NEGATIVE) 06/11/18 17:50 U Benzodiazepines Scrn Positive (NEGATIVE) 06/11/18 17:50 U Oth Cocaine Metabols Negative (NEGATIVE) 06/11/18 17:50 U Cannabinoids Screen Negative (NEGATIVE) 06/11/18 17:50 Alcohol, Quantitative 70 mg/dl (0-10) H 06/11/18 16:15 Attending/Attestation - Attestation I have personally seen and examined this patient.: Yes I have fully participated in the care of the patient.: Yes I have reviewed all pertinent clinical information, including history, physical exam and plan: Yes Notes (Text): Drug Overdose - Seroquel and Klonopin Suicidal Attempt Alcohol Intoxication Sinus Tachycardia, resolved Bipolar Dis Leukocytosis prob reactive Hypokalemia -Pt is awake , alert, oriented x 3 -tachycardia resolved, no EKG change, no abn rhythm on Tele monitor - ambulatory - tolerating regular diet - pt is afebrile, no signs of infection, leukocytosis trended down w/o abx - Psych consulted- recommended Inpatient Psych admission
[2018-06-13 11:23] VITALS: O2SAT 98
--- NOTE | 2018-06-13 11:58 | CP.PCM.CON ---
History of Present Illness - History of Present Illness History of Present Illness: This is a 27 yr old female with h/o bipolar disorder and admitted medically because of overdose on klonopin and was seen by dr encarnacion and psych admission was recommended and psych follow up consult requested for further evaluation and for possible admission to [facility] Past Patient History - Past Medical History & Family History Past Medical History?: Yes - Past Social History Smoking Status: unknown - CARDIAC Hx Cardiac Disorders: No Hx Hypertension: No - PULMONARY Hx Respiratory Disorders: No Hx Tuberculosis: No - NEUROLOGICAL Hx Neurological Disorder: No HX Cerebrovascular Accident: No Hx Seizures: No - HEENT Hx HEENT Problems: No - RENAL Hx Chronic Kidney Disease: No - ENDOCRINE/METABOLIC Hx Endocrine Disorders: No - HEMATOLOGICAL/ONCOLOGICAL Hx Blood Disorders: No Hx Cancer: No Hx Human Immunodeficiency Virus (HIV): No - INTEGUMENTARY Hx Dermatological Problems: No - MUSCULOSKELETAL/RHEUMATOLOGICAL Hx Musculoskeletal Disorders: No Hx Falls: No - GASTROINTESTINAL Hx Gastrointestinal Disorders: No - GENITOURINARY/GYNECOLOGICAL Hx Genitourinary Disorders: No Hx Sexually Transmitted Disorders: No - PSYCHIATRIC Hx Psychophysiologic Disorder: Yes Hx Bipolar Disorder: Yes Hx Substance Use: (unobtainable) - SURGICAL HISTORY Hx Surgeries: Yes Other/Comment: oral surgery - ANESTHESIA Hx Anesthesia: Yes Hx Anesthesia Reactions: No Hx Malignant Hyperthermia: No Has any member of the family had a problem w/ anesthesia?: No Meds Home Medications: Home Medication List Medication Instructions Recorded Confirmed Type Nicotine 14 mg/24 hr [Nicoderm CQ] 1 patch TD DAILY patch 06/13/18 Rx Thiamine [Vitamin B1 Tab] 100 mg PO DAILY tab 06/13/18 Rx Allergies/Adverse Reactions: Allergies Allergy/AdvReac Type Severity Reaction Status Date / Time nickel Allergy RASH Verified 06/12/18 21:15 - Medications Medications: Current Medications Nicotine (Nicoderm Cq) 1 patch TD DAILY [facility] Last Admin: 06/13/18 09:00 Dose: 1 patch Thiamine HCl (Vitamin B1 Tab) 100 mg PO DAILY [facility] Last Admin: 06/13/18 09:01 Dose: 100 mg Results - Vital Signs Recent Vital Signs: Last Vital Signs Temp 98.1 F 06/13/18 08:15 Pulse 95 H 06/13/18 11:13 Resp 18 06/13/18 08:15 BP 104/64 06/13/18 09:02 Pulse Ox 98 06/13/18 11:13 - Labs Result Diagrams: 06/13/18 04:35 06/13/18 04:35 Labs: Laboratory Results - last 24 hr 06/13/18 06/13/18 04:35 04:35 WBC 9.4 RBC 4.40 Hgb 12.7 Hct 38.2 MCV 86.8 MCH 28.8 MCHC 33.1 RDW 14.2 Plt Count 297 Sodium 141 Potassium 3.5 L Chloride 109 H Carbon Dioxide 22 Anion Gap 14 BUN 11 Creatinine 0.5 L Est GFR ( Amer) > 60 Est GFR (Non-Af Amer) > 60 Random Glucose 97 Calcium 8.5
[2018-06-13 20:09] VITALS: BP 118/71; PULSE 75; RESP 20; TEMP 98.4
== END 2018-06-14 00:34 | DRG 812 ==
LOC: H.ER 15:28 → INTOOBSV 23:10 → H.ERHOLD 23:10 → OBSVTOIN 23:10 → H.TEL 06-12 01:26 → H.STEP 06-13 21:26 → H.TEL 06-14 00:29
PROVIDERS: ADMIT Student in an Organized Health Care Education/Training Program; ATTEND Student in an Organized Health Care Education/Training Program
DX: T42.4X2A Poisoning by benzodiazepines, intentional self-harm, initial encounter (principal); F31.9 Bipolar disorder, unspecified; E86.0 Dehydration; E87.6 Hypokalemia; F10.129 Alcohol abuse with intoxication, unspecified; R00.0 Tachycardia, unspecified; D72.828 Other elevated white blood cell count; Y90.3 Blood alcohol level of 60-79 mg/100 ml; F17.210 Nicotine dependence, cigarettes, uncomplicated; Y92.009 Unspecified place in unspecified non-institutional (private) residence as the place of occurrence of the external cause

== ENCOUNTER 2018-06-14 00:36 | Inpatient (IN) | payer MEDICAID ==
[2018-06-14 00:41] VITALS: BMI 29.9
[2018-06-14] MEDS ORDERED: Magnesium Hydroxide Susp 30 ml UD PO PRN (01:05)
[2018-06-14] MEDS ORDERED: DiphenhydrAMINE 50 mg/ml Inj IM PRN (01:05)
[2018-06-14] MEDS ORDERED: Alum-Mag Hydrox-Simethicone Susp (30 mL) PO PRN (01:05)
--- NOTE | 2018-06-14 01:15 | PCM.BM ---
<Samuel Tavares - Last Filed: 06/14/18 01:13> Treatment Plan Problems - Problems identified on initial assessmt Suicidal Ideation Date Initiated: 06/14/18 Time Initiated: 01:13 Assessment reference: NA Status: Active Medication nonadherence Date Initiated: 06/14/18 Time Initiated: 01:14 Assessment reference: NA Status: Active Hopelessness/Helplessness Date Initiated: 06/14/18 Time Initiated: 01:14 Assessment reference: NA Status: Active Feelings of Worthlessness Date Initiated: 06/14/18 Time Initiated: 01:14 Assessment reference: NA Status: Active Treatment assets and liabiliti Patient Assests: cooperative, self-reliant, ADL independent, physically healthy, good support system, negotiates basic needs Patient Liabilities: financial problems, relationship conflicts - Milieu Protocol Maintain good personal hygiene: daily Encourage regular showers, daily Remind patient to perform daily oral care, daily Assist patient to perform ADL's Maintain personal safety: every shift Educate patient to report safety concerns to staff, every shift Monitor environment for contraband/sharps Medication safety: Monitor for expected outcome, potential side effects: every shift, Assess barriers to learning: every shift, Assess readiness for medication education: every shift <Karrie Sinha - Last Filed: 06/15/18 08:49> - Diagnosis (1) Bipolar disorder Status: Acute Interventions: Medication management, Individual and group therapy, Psychoeducation 06/15/18 08:50 <Sheree Mariee - Last Filed: 06/15/18 13:36> Family Contact Family involvement: Famliy/SO not involved - Outside Agency [facility] Care involvment: Information-sharing Agency contact name: Dr. Uriel Boateng MD Agency contact number: [phone] - Goals for Treatment Patient goals for treatment: Pt will improve overall mood. Pt will be freeof suicide thoughts. Pt will develop strategies for thought distraction when ruminating on the past. Pt will reduce anxiety and improve coping skills. Pt will develop a crisis plan and share it with tanner people. Pt will attend clinical and activity group. Pt will comply with prescribed medication. Discharge/Continuing Care - Education Needs Education Needs: Patient Medication, Patient Diagnosis/Disease Process, Patient Coping Skills, Patient Placement options, Patient Community resources, Patient Activities of Daily Living, Patient Nutrition, Patient Uses of Medical Equipment, Patient Health Practices/Safety, Patient Personal Hygiene/Grooming, Patient Aftercare Safety Plan - Discharge Discharge Criteria: Tolerates medication w/o severe side effects, Free of Suicidal thoughts, Normal sleep pattern, Ability to care for self, Reduction of target symptoms Discharge to:: Home - Additional Comments 06/15/18 13:24 Pt seen and discussed in team meeting. Reason for admission reviewed and discussed. Pt was a transfer from the medical floor secondary to suicide attempt via overdose. Pt reported she ingested Klonopin and alcohol. Pt reported being dx with Bipolar D/O and under the care and treatment of Dr. Uriel Boateng at [facility]. Pt reported she discontinued her medications approximately 2 months ago secondary to running out of medications and her health insurance terminating. Pt reported that she last visited with Dr. Boateng 2 moths ago. Pt reported that on April 24 she was terminated form her job at [employer] because she traveled to [place] for 9 days to attend her father's . Pt reported she filed for unemployment benefits but since then her benefits were terminated because she was terminated from her position. Pt reported several stressors contributing to her current state of mind. Pt reported lack of social support, financial issues, housing issues, and relationship issues. Pt reported she attempted suicide along with her ex- girlfriend. Pt reported she recently finalized her divorce form previous significant other. Pt reported her mother resides in [place]. Pt reported one prior suicide attempt in the past when she was a teenage via cutting her thighs. Pt reported one prior psychiatric hospitalization, involuntary in the [place] after she threatened to kill herself following the separation from ex-spouse. Pt reported that her mother traveled from [place] following her suicide attempt this time. Pt reported feeling "pretty bad after my mom came." Pt reported her mother is her reason to live. Pt's medical and social issues reviewed and discussed. Pt's medications reviewed. Pt reported she would like to be prescribed Lamictal but only if Medicaid will cover it. SW will contact [facility] and inquire. Lotus Notes Developer will also confirm that pt's Medicaid is active and not just for hospital admission. Pt signed consent form for [facility]. [place] plan reviewed and discussed. Pt verbalized agreement. SW will continue to follow case. - Treatment Team Participation Discussed with Family/SO: No Was Patient/Family/SO present at Treatment Team Meeting: No
[2018-06-14 07:55] LABS: ALB/GLOB RATIO 1.4 (1.0-2.1); ALBUMIN 4.1 g/dL (3.5-5.0); ALT/SGPT 33 U/L (9-52); AST/SGOT 29 U/L (14-36); BLOOD UREA NITROGEN 12 mg/dl (7-17); CALCIUM 9.3 mg/dL (8.4-10.2); GFR NON-AFRICAN AMERICAN > 60; HDL CHOLESTEROL 36 MG/DL (30-70)
[2018-06-14 07:57] LABS: BASO % 0.2 % (0.0-2.0); EOS # 0.1 K/uL (0.0-0.7); EOS % 1.9 % (0.0-4.0); LYMPH # 2.3 K/uL (1.0-4.3); LYMPH % 33.3 % (20.0-40.0); MEAN CELL VOLUME 86.7 fl (81.0-99.0); MEAN CORPUSCULAR HEMOGLOBIN 28.3 pg (27.0-31.0); MEAN CORPUSCULAR HGB CONC 32.6 g/dL (33.0-37.0); MEAN PLATELET VOLUME 7.6 fl (7.2-11.7); MONO # 0.6 K/uL (0.0-0.8); MONO % 8.9 % (0.0-10.0); NEUT # 3.8 K/uL (1.8-7.0); NEUT % 55.7 % (50.0-75.0); NRBC % 0.2 % (0.0-0.0); RBC 4.59 Mil/uL (3.80-5.20); RED CELL DISTRIBUTION WIDTH 13.8 % (11.5-14.5); WHITE BLOOD COUNT 6.8 K/uL (4.8-10.8)
[2018-06-14 08:06] LABS: LDL CHOLESTEROL 102 mg/dL (0-129)
--- NOTE | 2018-06-14 13:51 | PCM.PSYCH ---
Initial Psychiatric Evaluation - Initial Psychiatric Evaluation Type of Admission: Voluntary Legal Status: Capacity Chief Complaint (in patient's own words): i attempted to end my life Patient's Reaction to Hospitalization: pt is upset History of Present Illness and Precipitating Events: This is the [facility] admission for this 27 yr old female who has been admitted because of severe depression and suicidal attempt as she overdosed on seroquel and klonopin with alcohol and her roommate also attempted overdose with her.pt reports her stressor as of mother in [facility] and loosing her job later and unemployment stopped recently and pt unable to deal with these losses.pt was admitted to medical unit for stabilized and transfered here now for further stabilization. Current Medications: Active Medications Generic Name Dose Route Start Last Admin Trade Name Freq PRN Reason Stop Dose Admin Acetaminophen 650 mg 06/14/18 01:05 Tylenol 325mg Tab PO Q4 PRN Pain, moderate (4-7) Al Hydrox/Mg Hydrox/Simethicone 30 ml 06/14/18 01:05 Maalox Plus 30 Ml PO Q4 PRN Dyspepsia Diphenhydramine HCl 50 mg 06/14/18 01:05 Benadryl IM Q6 PRN Extrapyramidal S/S Unable PO Diphenhydramine HCl 50 mg 06/14/18 01:05 Benadryl PO Q6 PRN Extrapyramidal Symptoms Diphenhydramine HCl 50 mg 06/14/18 01:05 Benadryl PO HS PRN Sleep Haloperidol 5 mg 06/14/18 01:05 Haldol PO Q4 PRN Agitation Haloperidol Lactate 5 mg 06/14/18 01:05 Haldol IM Q4 PRN Agitation, Unable to Take PO Lorazepam 2 mg 06/14/18 01:05 Ativan IM Q8 PRN Anxiety/Agitation,Unable PO Lorazepam 0.5 mg 06/14/18 01:05 Ativan PO Q6 PRN Anxiety/Agitation Magnesium Hydroxide 30 ml 06/14/18 01:05 Milk Of Magnesia PO HS PRN Constipation Nicotine 1 patch 06/14/18 09:00 06/14/18 08:16 Nicoderm Cq TD 1 patch DAILY TYRA Administration Thiamine HCl 100 mg 06/14/18 09:00 06/14/18 08:16 Vitamin B1 Tab PO 100 mg DAILY TYRA Administration Past Psychiatric History - Past Psychiatric History Previous Treatment History: Inpatient Prior Professional Help: pt was in outpt tx and prescribed vraylar,valium,inderal,prozac and adderal Prior Psychiatric Treatment: pt stopped tx when she lost her job At [employer] [employer] Nature of Treatment: depression History of Abuse: denies History of ETOH/Drug Use: pt has h/o alcohol abuse History of Family Illness: denies Pertinent Medical Hx (Current Medical&Sleep Prob, Allergies): Allergies Allergy/AdvReac Type Severity Reaction Status Date / Time nickel Allergy RASH Verified 06/12/18 21:15 ALPRAZolam [Xanax] 1 mg PO Q8 06/11/18 Dextroamphetamine/Amphetamine [Adderall 20 mg Tablet] 20 mg PO BID 06/11/18 Diazepam [Valium] 10 mg PO Q12 PRN 06/11/18 [place] Carbonate ER Tab [[place] Carbonate] 3 tab PO DAILY 06/11/18 Propranolol [Inderal] 10 mg PO Q12 06/11/18 Nicotine 14 mg/24 hr [Nicoderm CQ] 1 patch TD DAILY patch 06/13/18 Thiamine [Vitamin B1 Tab] 100 mg PO DAILY tab 06/13/18 Review of Systems - Review of Systems All systems: reviewed and no additional remarkable complaints except Mental Status Examination - Personal Presentation Personal Presentation: Looks stated age - Affect Affect: Constricted - Motor Activity Motor Activity: Other - Speech Speech: Relevant - Mood Mood: Depressed - Formal Thought Process Formal Thought Process: Paranoia, Flight of ideas - Obsessions/Compulsions Obsessions: No Compulsions: No - Cognitive Functions Orientation: Person, Place, Situation, Time Attention/Concentration: Easily distracted Abstract Thinking: As evidence by literal perception of proverbs Estimate of Intelligence: Average Judgement: Imparied, as evidence by: Poor judgement, Imparied, as evidence by: Lack of insight into illness Memory: Recent intact, as evidence by: Ability to recall events of the day, Remote intact, as evidenced by: Ability to recall historical events - Risk Risk: Diminished functioning - Strength & Assets Inventory Strength & Assets Inventory: Cooperative DSM 5 DX - DSM 5 DSM 5 Diagnosis: Bipolar disorder I ,most recent episode depressed type - Recommended/Plan of Treatment Treatment Recommendations and Plan of Treatment: Pt has agreed to start prozac 20 mg daily in am for stabilization of mood and klonopin 0.5 mg bid for anxiety and mood stabilization and will continue to engage pt in therapy.pt also wants to go back on vrayler as mood stabilizer but it is nonformulary . hospital consult to follow up on her medical stAtus post overdose on pills.pt is currently stable and vitals are WNL.
--- NOTE | 2018-06-14 14:03 | CP.PCM.CON ---
<Nory Severino - Last Filed: 06/14/18 14:18> History of Present Illness - History of Present Illness History of Present Illness: Medical consult note 27-year-old female with PMH of depression admitted to [facility] after suicide attempt via Klonopin and Seroquel overdose. Denies any other medical conditions or medications. Previously on tele for monitoring before being medically cleared for transfer to psych. Patient denies BLOOM, dizziness, blurry vision, CP, SOB, N/V at this time. Review of Systems - Review of Systems Review of Systems: all other systems reviewed and negative unless noted in HPI Past Patient History - Past Medical History & Family History Past Medical History?: Yes - Past Social History Smoking Status: unknown - CARDIAC Hx Cardiac Disorders: No Hx Hypertension: No - PULMONARY Hx Respiratory Disorders: No Hx Tuberculosis: No - NEUROLOGICAL Hx Neurological Disorder: No HX Cerebrovascular Accident: No Hx Seizures: No - HEENT Hx HEENT Problems: No - RENAL Hx Chronic Kidney Disease: No - ENDOCRINE/METABOLIC Hx Endocrine Disorders: No - HEMATOLOGICAL/ONCOLOGICAL Hx Blood Disorders: No Hx Cancer: No Hx Human Immunodeficiency Virus (HIV): No - INTEGUMENTARY Hx Dermatological Problems: No - MUSCULOSKELETAL/RHEUMATOLOGICAL Hx Musculoskeletal Disorders: No Hx Falls: No - GASTROINTESTINAL Hx Gastrointestinal Disorders: No - GENITOURINARY/GYNECOLOGICAL Hx Genitourinary Disorders: No Hx Sexually Transmitted Disorders: No - PSYCHIATRIC Hx Substance Use: No - SURGICAL HISTORY Hx Surgeries: Yes Other/Comment: oral surgery - ANESTHESIA Hx Anesthesia: Yes Hx Anesthesia Reactions: No Hx Malignant Hyperthermia: No Meds Allergies/Adverse Reactions: Allergies Allergy/AdvReac Type Severity Reaction Status Date / Time nickel Allergy RASH Verified 06/12/18 21:15 - Medications Medications: Current Medications Acetaminophen (Tylenol 325mg Tab) 650 mg PO Q4 PRN PRN Reason: Pain, moderate (4-7) Al Hydrox/Mg Hydrox/Simethicone (Maalox Plus 30 Ml) 30 ml PO Q4 PRN PRN Reason: Dyspepsia Diphenhydramine HCl (Benadryl) 50 mg IM Q6 PRN PRN Reason: Extrapyramidal S/S Unable PO Diphenhydramine HCl (Benadryl) 50 mg PO Q6 PRN PRN Reason: Extrapyramidal Symptoms Diphenhydramine HCl (Benadryl) 50 mg PO HS PRN PRN Reason: Sleep Haloperidol (Haldol) 5 mg PO Q4 PRN PRN Reason: Agitation Haloperidol Lactate (Haldol) 5 mg IM Q4 PRN PRN Reason: Agitation, Unable to Take PO Lorazepam (Ativan) 2 mg IM Q8 PRN PRN Reason: Anxiety/Agitation,Unable PO Lorazepam (Ativan) 0.5 mg PO Q6 PRN PRN Reason: Anxiety/Agitation Magnesium Hydroxide (Milk Of Magnesia) 30 ml PO HS PRN PRN Reason: Constipation Nicotine (Nicoderm Cq) 1 patch TD DAILY [facility] Last Admin: 06/14/18 08:16 Dose: 1 patch Thiamine HCl (Vitamin B1 Tab) 100 mg PO DAILY [facility] Last Admin: 06/14/18 08:16 Dose: 100 mg Physical Exam - Constitutional Appears: Non-toxic, No Acute Distress - Head Exam Head Exam: NORMAL INSPECTION - ENT Exam ENT Exam: Mucous Membranes Moist - Respiratory Exam Respiratory Exam: NORMAL BREATHING PATTERN. absent: Respiratory Distress - Cardiovascular Exam Cardiovascular Exam: REGULAR RHYTHM - GI/Abdominal Exam GI & Abdominal Exam: Soft - Extremities Exam Extremities exam: Negative for: pedal edema - Neurological Exam Neurological exam: Alert, Normal Gait, Oriented x3 - Skin Skin Exam: Normal Color, Warm Results - Vital Signs Recent Vital Signs: Last Vital Signs Temp 97.5 F L 06/14/18 06:00 Pulse 88 06/14/18 06:00 Resp 20 06/14/18 06:00 BP 115/77 06/14/18 06:00 Pulse Ox - Labs Result Diagrams: 06/14/18 07:20 06/14/18 07:20 Labs: Laboratory Results - last 24 hr 06/14/18 06/14/18 06/14/18 07:20 07:20 07:20 WBC 6.8 RBC 4.59 Hgb 13.0 Hct 39.8 MCV 86.7 MCH 28.3 MCHC 32.6 L RDW 13.8 Plt Count 312 MPV 7.6 Neut % (Auto) 55.7 Lymph % (Auto) 33.3 [place] % (Auto) 8.9 Eos % (Auto) 1.9 Baso % (Auto) 0.2 Neut # (Auto) 3.8 Lymph # (Auto) 2.3 [place] # (Auto) 0.6 Eos # (Auto) 0.1 Baso # (Auto) 0.0 Sodium 141 Potassium 3.8 Chloride 105 Carbon Dioxide 25 Anion Gap 15 BUN 12 Creatinine 0.5 L Est GFR ( Amer) > 60 Est GFR (Non-Af Amer) > 60 Random Glucose 106 H Hemoglobin A1c 5.3 Calcium 9.3 Total Bilirubin 0.3 AST 29 ALT 33 Alkaline Phosphatase 51 Total Protein 7.1 Albumin 4.1 Globulin 3.0 Albumin/Globulin Ratio 1.4 Triglycerides 183 H Cholesterol 168 LDL Cholesterol Direct 102 HDL Cholesterol 36 Thyroxine (T4) 8.21 TSH 3rd Generation 0.93 Assessment & Plan - Assessment and Plan (Free Text) Plan: Suicide attempt - Secondary to depression - Management as per psych recommendations <Rachana Pierre - Last Filed: 06/15/18 19:52> Meds - Medications Medications: Current Medications Acetaminophen (Tylenol 325mg Tab) 650 mg PO Q4 PRN PRN Reason: Pain, moderate (4-7) Al Hydrox/Mg Hydrox/Simethicone (Maalox Plus 30 Ml) 30 ml PO Q4 PRN PRN Reason: Dyspepsia Diphenhydramine HCl (Benadryl) 50 mg IM Q6 PRN PRN Reason: Extrapyramidal S/S Unable PO Diphenhydramine HCl (Benadryl) 50 mg PO Q6 PRN PRN Reason: Extrapyramidal Symptoms Diphenhydramine HCl (Benadryl) 50 mg PO HS PRN PRN Reason: Sleep Last Admin: 06/14/18 21:10 Dose: 50 mg Fluoxetine HCl (Prozac) 20 mg PO DAILY [facility] Last Admin: 06/15/18 12:33 Dose: 20 mg Haloperidol (Haldol) 5 mg PO Q4 PRN PRN Reason: Agitation Haloperidol Lactate (Haldol) 5 mg IM Q4 PRN PRN Reason: Agitation, Unable to Take PO Hydroxyzine Pamoate (Vistaril) 50 mg PO Q8 PRN PRN Reason: Anxiety Lamotrigine (Lamictal) 25 mg PO DAILY [facility] Last Admin: 06/15/18 16:27 Dose: 25 mg Lorazepam (Ativan) 2 mg IM Q8 PRN PRN Reason: Anxiety/Agitation,Unable PO Lorazepam (Ativan) 0.5 mg PO Q6 PRN PRN Reason: Anxiety/Agitation Magnesium Hydroxide (Milk Of Magnesia) 30 ml PO HS PRN PRN Reason: Constipation Nicotine (Nicoderm Cq) 1 patch TD DAILY [facility]YRA Last Admin: 06/15/18 11:26 Dose: 1 patch Thiamine HCl (Vitamin B1 Tab) 100 mg PO DAILY [facility] Last Admin: 06/15/18 12:34 Dose: 100 mg Results - Vital Signs Recent Vital Signs: Last Vital Signs Temp 98.7 F 06/15/18 16:05 Pulse 99 H 06/15/18 16:05 Resp 20 06/15/18 16:05 BP 103/72 06/15/18 16:05 Pulse Ox - Labs Result Diagrams: 06/14/18 07:20 06/14/18 07:20 Attending/Attestation - Attestation I have personally seen and examined this patient.: Yes I have fully participated in the care of the patient.: Yes I have reviewed all pertinent clinical information: Yes Notes (Text): 06/15/18 19:52 Agree with findings and plan as above
--- NOTE | 2018-06-15 10:39 | PCM.PYCHPN ---
Psychiatric Progress Note - Psychiatric Progress Note Patient seen today, length of contact: Pt evaluated, case discussed w/ team, chart reviewed Patient Chief Complaint: Depression Problems Identified/Issues Discussed: Patient continues to feel depressed and anxious. She denies acute SI and was tearful when discussing her recent suicide attempt. She reports that she wants to continue living for her mother. She reports feeling hopeless at times. Psychoeducation provided on the importance of compliance with treatment and medications. Patient requested to restart Lamictal, which she stated was helpful for her in the past. Medication Change: Yes (Start Lamictal) Medical Record Reviewed: Yes Consults ordered or reviewed: Medicine consult Mental Status Examination - Cognitive Function Orientation: Person, Place, Situation, Time Memory: Intact Attention: WNL Concentration: WNL Association: WNL Fund of Knowledge: WNL Decription of patient's judgement and insights: Improving I/J - Mood Mood: Depressed - Affect Affect: Constricted - Speech Speech: Appropriate - Formal Thought Process Formal Thought Process: No Impairment Psychotic Thoughts and Behaviors: No AH/VH/paranoia/delusions - Suicidal Ideation Suicidal Ideation: No - Homicidal Ideation Homicidal Ideation: No Goal/Treatment Plan - Goal/Treatment Plan Need for Continued Stay: Remain at risks for inpatient hospitalization, Severe depression anxiety Progress Toward Problem(s) and Goals/Treatment Plan: Bipolar Disorder -Individual and group therapy -Medicine consult -Start Lamictal 25 mg PO Daily -Prozac 20 mg PO Daily -Nicotine patch -Disposition planning Estimated Date of D/C: 06/19/18 - Smoking Cessation Smoking Cessation Initiated: Yes
--- NOTE | 2018-06-16 08:55 | PCM.PYCHPN ---
Psychiatric Progress Note - Psychiatric Progress Note Patient seen today, length of contact: Pt evaluated, case discussed w/ team, chart reviewed Patient Chief Complaint: Depression Problems Identified/Issues Discussed: Patient reports that her mood is improving. She is more goal oriented and hopeful for the future. She discussed her plans to look for a job and wants to celebrate her birthday with friends. She was tearful on interview, but was able to brighten, and has full range of affect. She denies acute SI and expresses remorse for her recent suicide attempt. Psychoeducation provided on the importance of compliance with treatment and medications. No adverse effects to medications reported. Medication Change: No Medical Record Reviewed: Yes Consults ordered or reviewed: Medicine consult Mental Status Examination - Cognitive Function Orientation: Person, Place, Situation, Time Memory: Intact Attention: WNL Concentration: WNL Association: WNL Fund of Knowledge: WNL Decription of patient's judgement and insights: Improving I/J - Mood Mood: Depressed - Affect Affect: Broad - Speech Speech: Appropriate - Formal Thought Process Formal Thought Process: No Impairment Psychotic Thoughts and Behaviors: No AH/VH/paranoia/delusions - Suicidal Ideation Suicidal Ideation: No - Homicidal Ideation Homicidal Ideation: No Goal/Treatment Plan - Goal/Treatment Plan Need for Continued Stay: Remain at risks for inpatient hospitalization, Severe depression anxiety Progress Toward Problem(s) and Goals/Treatment Plan: Bipolar Disorder -Individual and group therapy -Medicine consult -Continue Lamictal 25 mg PO Daily -Continue Prozac 20 mg PO Daily -Nicotine patch -Disposition planning Estimated Date of D/C: 06/19/18
--- NOTE | 2018-06-17 12:40 | PCM.PYCHPN ---
Psychiatric Progress Note - Psychiatric Progress Note Patient seen today, length of contact: Pt evaluated, case discussed w/ team, chart reviewed Patient Chief Complaint: Depression Problems Identified/Issues Discussed: Patient reports that her mood continues to improve. She discussed her plans for when she is discharged from the hospital. She has a brighter range of affect. She denies acute ideation to harm herself. Psychoeducation provided on the importance of compliance with treatment and medications. No adverse effects to medications reported. Medication Change: No Medical Record Reviewed: Yes Consults ordered or reviewed: Medicine consult Mental Status Examination - Cognitive Function Orientation: Person, Place, Situation, Time Memory: Intact Attention: WNL Concentration: WNL Association: WNL Fund of Knowledge: [facility] Decription of patient's judgement and insights: Improving I/J - Mood Mood: Depressed - Affect Affect: Broad - Speech Speech: Appropriate - Formal Thought Process Formal Thought Process: No Impairment Psychotic Thoughts and Behaviors: No AH/VH/paranoia/delusions - Suicidal Ideation Suicidal Ideation: No - Homicidal Ideation Homicidal Ideation: No Goal/Treatment Plan - Goal/Treatment Plan Need for Continued Stay: Remain at risks for inpatient hospitalization, Severe depression anxiety Progress Toward Problem(s) and Goals/Treatment Plan: Bipolar Disorder -Individual and group therapy -Medicine consult -Continue Lamictal 25 mg PO Daily -Continue Prozac 20 mg PO Daily -Nicotine patch -Disposition planning Estimated Date of D/C: 06/19/18
[2018-06-18 06:15] VITALS: RESP 18
--- NOTE | 2018-06-18 08:50 | PCM.PYCHPN ---
Psychiatric Progress Note - Psychiatric Progress Note Patient seen today, length of contact: Pt evaluated, case discussed w/ team, chart reviewed Patient Chief Complaint: "I'm feeling better." Problems Identified/Issues Discussed: Patient continues to improve clinically. She denies feeling acutely depressed or anxious. She discussed her social and financial stressors. We discussed the important of compliance w/ treatment and medications and using coping skills to deal with life stress. She denies acute suicidal ideation/plan/intent. She is more hopeful for the future. No adverse effects to medications reported. Medication Change: No Medical Record Reviewed: Yes Consults ordered or reviewed: Medicine consult Mental Status Examination - Cognitive Function Orientation: Person, Place, Situation, Time Memory: Intact Attention: WNL Concentration: WNL Association: WNL Fund of Knowledge: [facility] Decription of patient's judgement and insights: Good I/J - Mood Mood: Neutral - Affect Affect: Broad - Speech Speech: Appropriate - Formal Thought Process Formal Thought Process: No Impairment Psychotic Thoughts and Behaviors: No AH/VH/paranoia/delusions - Suicidal Ideation Suicidal Ideation: No - Homicidal Ideation Homicidal Ideation: No Goal/Treatment Plan - Goal/Treatment Plan Need for Continued Stay: Remain at risks for inpatient hospitalization, Severe depression anxiety Progress Toward Problem(s) and Goals/Treatment Plan: Bipolar Disorder -Individual and group therapy -Medicine consult -Continue Lamictal 25 mg PO Daily -Continue Prozac 20 mg PO Daily -Nicotine patch -Disposition planning- likely discharge tomorrow as patient continues to improve clinically Estimated Date of D/C: 06/19/18
[2018-06-19 06:08] VITALS: BP 110/63; PULSE 77; TEMP 97.1
--- NOTE | 2018-06-19 08:58 | PCM.PYCHDC ---
Mental Status Examination - Mental Status Examination Orientation: Person, Place, Situation, Time Memory: Intact Mood: Neutral Affect: Broad Speech: Appropriate Attention: WNL Concentration: WNL Association: WNL Fund of Knowledge: WNL Formal Thought Process: No Impairment Description of patient's judgement and insight: Good I/J Psychotic Thoughts and Behaviors: No AH/VH/paranoia/delusions Suicidal Ideation: No Current Homicidal Ideation?: No Discharge Summary - Discharge Note Reason for Hospitalization: 27 yo female w/ h/o bipolar disorder, admitted s/p medical admission after she attempted suicide with a friend by overdose on Klonopin and Seroquel. Psychiatric History (includes Medical, Family, Personal Hx): depression Consultations:: List each consultation separately and include: 1. Reason for request. 2. Findings. 3. Follow-up Consultations: Medicine consult Summary of Hospital Course include:: 1. Description of specific treatment plan utilized for patients during their course of treatmen. 2. Summarize the time- course for resolution of acute symptoms and/or regressed behaviors. 3. Describe issues identified and worked on during hospitalization. 4. Describe medication utilized. 5. Describe medical problems identified and treated. 6. Reassessment of suicide risk Summary of Hospital Course: Patient was admitted to the psychiatry unit. Individual and group therapy were provided. Patient was treated with Prozac 20 mg PO Daily and started on Lamictal, with instructions on how to continue titration upon discharge. No current adverse effects reported. Patient informed to go to the ER, call or go to her doctor or call 911 if she has suicidal ideations/plan or intent in the future. Patient informed to call her doctor or go to the ER if she develops a rash. Psychoeducation provided on the importance of compliance with treatment and medications. Patient denies acute depressed mood and denies suicidal ideation/plan/intent. She is psychiatrically stable for discharge with outpatient follow-up. - Diagnosis (1) Bipolar disorder Current Visit: Yes Status: Chronic - Final Diagnosis (DSM 5) Condition upon Discharge: STABLE DSM 5: Bipolar Disorder Disposition: HOME/ ROUTINE Follow-up Treatment Plan: Bipolar Disorder -Continue Lamictal 25 mg PO Daily; will titrated gradually -Continue Prozac 20 mg PO Daily -Patient is psychiatrically stable for discharge with outpatient follow-up Prescriptions/Medication Reconciliation: FLUoxetine [Prozac] 20 mg PO DAILY #30 cap Lamotrigine [Lamictal ([place])] 1 each PO ASDIR #1 tab.ds.pk - Smoking Cessation Smoking Cessation Medication prescribed: Yes Reason for not providing: Provided during admission; Pt declined outpatient prescription - Antipsychotic Medications Pt discharged on 2 or more routine antipsychotic medications: No
--- NOTE | 2018-06-19 10:53 | CT ---
Date of service: 06/18/2018 PROCEDURE: CT HEAD WITHOUT CONTRAST. HISTORY: Persistent left side headache COMPARISON: None available. TECHNIQUE: Axial computed tomography images were obtained through the head/brain without intravenous contrast. Supplemental Coronal and Sagittal projections created and reviewed. Radiation dose: Total exam DLP = 832.11 mGy-cm. This CT exam was performed using one or more of the following dose reduction techniques: Automated exposure control, adjustment of the mA and/or kV according to patient size, and/or use of iterative reconstruction technique. FINDINGS: HEMORRHAGE: No intracranial hemorrhage. BRAIN: No mass effect or edema. No atrophy or chronic microvascular ischemic changes. VENTRICLES: Unremarkable. No hydrocephalus. CALVARIUM: Unremarkable. PARANASAL SINUSES: Unremarkable as visualized. No significant inflammatory changes. MASTOID AIR CELLS: Unremarkable as visualized. No inflammatory changes. OTHER FINDINGS: None. IMPRESSION: No acute intracranial abnormalities. No significant findings to account for the clinical presentation. Concordant results (preliminary interpretation) provided by [facility]. Procedure Completed: 22:52. Preliminary Report: Interpreted and electronically signed: 23:58. Final Interpretation: 10:49. June 19, 2018.
== END 2018-06-19 13:15 | disposition home or self-care (01) | DRG 753 ==
LOC: H.STEP 00:41
PROVIDERS: ADMIT Psychiatry & Neurology Psychiatry; ATTEND Psychiatry & Neurology Psychiatry
PROC: GZHZZZZ Group Psychotherapy (ICD-10-PCS; principal; 2018-06-14)
PROC: GZ58ZZZ Individual Psychotherapy, Cognitive-Behavioral (ICD-10-PCS; 2018-06-14)
DX: F31.30 Bipolar disorder, current episode depressed, mild or moderate severity, unspecified (principal); F10.10 Alcohol abuse, uncomplicated; Z91.5 Personal history of self-harm